=== PATIENT | female | born 1955 | race African-American/Black ===

== ENCOUNTER 2021-11-19 18:49 | Emergency (ER) | payer MEDICARE, MEDICAID ==
[~2021-11-19] VITALS: Ht 154.9 cm; Wt 98.0 kg
[~2021-11-19 18:49] MED LIST: ALBU2TAB44 GT; ENAL1TAB PO; FURO-152 PO
[2021-11-19 23:20] VITALS: BP 138/60
== END 2021-11-19 23:20 | disposition home or self-care (01) ==
LOC: ER 18:49
DX: T67.5XXA Heat exhaustion, unspecified, initial encounter (principal); X58.XXXA Exposure to other specified factors, initial encounter; Y93.89 Activity, other specified; Y92.89 Other specified places as the place of occurrence of the external cause; Y99.8 Other external cause status; J45.909 Unspecified asthma, uncomplicated; R06.02 Shortness of breath; I10 Essential (primary) hypertension
CPT/HCPCS: 71045; 93005; 99283

== ENCOUNTER 2023-03-09 12:20 | Emergency (ER) | payer MEDICARE, MEDICAID ==
[~2023-03-09] VITALS: Ht 154.9 cm; Wt 91.2 kg
[~2023-03-09 12:20] MED LIST changes: +ALBU2 GT; -ALBU2TAB44 GT
[2023-03-09 12:34] VITALS: O2SAT 100
[2023-03-09 12:58] LABS: CLARITY URINE CLOUDY (CLEAR); COLOR URINE YELLOW (YELLOW); GLUCOSE URINE NEGATIVE (NEGATIVE); KETONES URINE NEGATIVE (NEGATIVE); LEUKOCYTE ESTERASE URINE 3+ (NEGATIVE); NITRITE URINE NEGATIVE (NEGATIVE); OCCULT BLOOD URINE NEGATIVE (NEGATIVE); PH URINE 5.5 (4.5-8.0); PROTEIN URINE NEGATIVE (NEGATIVE); SPECIFIC GRAVITY URINE 1.018 (1.005-1.030); UROBILINOGEN URINE 0.2 E.U./dL (0.2-1.0)
[2023-03-09 13:17] LABS: SQUAMOUS EPITHELIAL CELL URINE 3+ /lpf (RARE/1+)
[2023-03-09 13:18] LABS: BACTERIA URINE 3+; RBC URINE 0-2 /hpf (0-2)
[2023-03-09] MEDS ORDERED: CEPH500C2 MT (14:49)
[2023-03-09 15:18] VITALS: BP 128/72; PULSE 54; RESP 16; TEMP 98.6
== END 2023-03-09 15:19 | disposition home or self-care (01) ==
LOC: ER 12:20
DX: N39.0 Urinary tract infection, site not specified (principal); I10 Essential (primary) hypertension; J45.909 Unspecified asthma, uncomplicated
CPT/HCPCS: 81003; 99283

== ENCOUNTER 2023-11-05 23:14 | Emergency (ER) | payer MEDICARE, MEDICAID ==
[~2023-11-05] VITALS: Ht 162.6 cm; Wt 82.0 kg
[~2023-11-05 23:14] MED LIST changes: +CEPH500C2 MT
[2023-11-05 23:17] VITALS: O2SAT 100
[2023-11-06] MEDS ORDERED: IBUPROFEN 600MG TABLET PO STA (00:36)
[2023-11-06] MEDS: IBUPROFEN 600MG TABLET PO NR (01:24)
[2023-11-06 01:35] LABS: BASOPHILS % 0.8 % (0.0-2.0); EOSINOPHILS % 3.8 % (0.0-5.0); HEMATOCRIT. 39.3 % (36.0-48.0); HEMOGLOBIN. 12.9 g/dL (12.0-16.0); LYMPHOCYTES % 42.8 % (20.0-50.0); MEAN CORPUSCULAR HEMOGLOBIN 28.8 pg (28.0-32.0); MEAN CORPUSCULAR HGB CONC 32.9 g/dL (31.0-37.0); MEAN CORPUSCULAR VOLUME 87.5 fL (81.0-99.0); MEAN PLATELET VOLUME 8.9 fl (7.4-10.4); MONOCYTES % 6.5 % (2.0-8.0); NEUTROPHILS % 46.1 % (40.0-76.0); PLATELET 229 x1000/uL (130-400); RED BLOOD CELL COUNT 4.49 mill/uL (4.2-5.4); RED CELL DISTRIBUTION WIDTH 14.7 % (11.6-14.6); WHITE BLOOD COUNT 7.3 x1000/uL (4.5-11.0)
[2023-11-06 01:41] LABS: CARBON DIOXIDE 28 mEq/L (21-32); CHLORIDE 107 mEq/L (98-107); POTASSIUM 3.8 mEq/L (3.5-5.1); SODIUM 139 mEq/L (136-145)
[2023-11-06 01:42] LABS: CALCIUM 9.7 mg/dL (8.7-10.4)
[2023-11-06 01:47] LABS: CREATININE 0.9 mg/dL (0.6-1.0); GLUCOSE 102 mg/dL (70-105); UREA NITROGEN BLOOD 19 mg/dL (9-23)
[2023-11-06 01:49] LABS: TROPONIN I HIGH SENSITIVITY 25 ng/L (3.0-34)
[2023-11-06] MEDS: ACETAMINOPHEN 325MG TABLET PO NR (02:50)
[2023-11-06 03:44] LABS: TROPONIN I HIGH SENSITIVITY 23 ng/L (3.0-34)
[2023-11-06] MEDS ORDERED: ACET-2708 MT (05:06)
[2023-11-06 05:24] VITALS: BP 137/73; PULSE 61; RESP 18; TEMP 36.50292; O2SAT 100
== END 2023-11-06 05:17 | disposition home or self-care (01) ==
LOC: ER 23:14
DX: G62.9 Polyneuropathy, unspecified (principal); M79.602 Pain in left arm; F41.9 Anxiety disorder, unspecified; J45.909 Unspecified asthma, uncomplicated; I10 Essential (primary) hypertension; Z98.51 Tubal ligation status; Z90.49 Acquired absence of other specified parts of digestive tract; Z79.899 Other long term (current) drug therapy
CPT/HCPCS: 36415; 71045; 73030; 80048; 83880; 84484; 85025; 93005; 93971; 99285

== ENCOUNTER 2024-01-08 23:25 | Emergency (ER) | payer MEDICARE, MEDICAID ==
[~2024-01-08] VITALS: Ht 170.2 cm; Wt 100.0 kg
[~2024-01-08 23:25] MED LIST changes: +ACET-2708 MT
[2024-01-08 23:27] VITALS: BP 156/85; PULSE 64; RESP 12; TEMP 97.8; O2SAT 99
[2024-01-09 01:56] LABS: BASOPHILS % 0.5 % (0.0-2.0); HEMATOCRIT. 39.9 % (36.0-48.0); HEMOGLOBIN. 12.9 g/dL (12.0-16.0); LYMPHOCYTES % 39.2 % (20.0-50.0); MEAN CORPUSCULAR HEMOGLOBIN 28.3 pg (28.0-32.0); MEAN CORPUSCULAR HGB CONC 32.4 g/dL (31.0-37.0); MEAN CORPUSCULAR VOLUME 87.2 fL (81.0-99.0); MEAN PLATELET VOLUME 8.8 fl (7.4-10.4); MONOCYTES % 5.7 % (2.0-8.0); NEUTROPHILS % 51.6 % (40.0-76.0); PLATELET 246 x1000/uL (130-400); RED BLOOD CELL COUNT 4.58 mill/uL (4.2-5.4); RED CELL DISTRIBUTION WIDTH 14.8 % (11.6-14.6); WHITE BLOOD COUNT 7.2 x1000/uL (4.5-11.0)
[2024-01-09 02:02] LABS: CHLORIDE 109 mEq/L (98-107); POTASSIUM 3.9 mEq/L (3.5-5.1); SODIUM 141 mEq/L (136-145)
[2024-01-09 02:03] LABS: CARBON DIOXIDE 29 mEq/L (21-32)
[2024-01-09 02:04] LABS: CALCIUM 9.3 mg/dL (8.7-10.4)
[2024-01-09 02:08] LABS: CREATININE 0.9 mg/dL (0.6-1.0); GLUCOSE 92 mg/dL (70-105)
[2024-01-09 02:09] LABS: TROPONIN I HIGH SENSITIVITY 6 ng/L (3.0-34); UREA NITROGEN BLOOD 16 mg/dL (9-23)
[2024-01-09 03:50] LABS: CLARITY URINE CLOUDY (CLEAR); COLOR URINE YELLOW (YELLOW); GLUCOSE URINE NEGATIVE (NEGATIVE); KETONES URINE NEGATIVE (NEGATIVE); LEUKOCYTE ESTERASE URINE 3+ (NEGATIVE); NITRITE URINE NEGATIVE (NEGATIVE); OCCULT BLOOD URINE NEGATIVE (NEGATIVE); PH URINE 5.5 (4.5-8.0); PROTEIN URINE NEGATIVE (NEGATIVE); SPECIFIC GRAVITY URINE 1.021 (1.005-1.030)
[2024-01-09] MEDS ORDERED: SULF1TAB48 MT (04:03)
[2024-01-09 06:19] LABS: WBC URINE TNTC /hpf (0-2)
[2024-01-09 06:20] LABS: BACTERIA URINE 2+; CALCIUM OXALATE CRYSTALS URINE 1+ /lpf; SQUAMOUS EPITHELIAL CELL URINE 1+ /lpf (RARE/1+)
== END 2024-01-09 03:01 | disposition home or self-care (01) ==
LOC: ER 23:25
DX: R20.2 Paresthesia of skin (principal); N39.0 Urinary tract infection, site not specified; J45.909 Unspecified asthma, uncomplicated; F41.9 Anxiety disorder, unspecified; I10 Essential (primary) hypertension; Z98.51 Tubal ligation status; Z90.49 Acquired absence of other specified parts of digestive tract; Z79.899 Other long term (current) drug therapy
CPT/HCPCS: 36415; 80048; 81003; 84484; 85025; 87077; 87186; 93005; 99284